=== PATIENT | female | born 1980 | race American Indian/Alaskan Native ===

== ENCOUNTER 2023-02-27 13:14 | Outpatient (CLI) | payer OTHER, SELFPAY ==
--- NOTE | 2023-02-27 13:28 | MM_ITS ---
WS: [id number] BILATERAL 3D TOMOSYNTHESIS DIGITAL SCREENING MAMMOGRAPHY WITH CAD CLINICAL INFORMATION: SCREENING HISTORY: Screening mammogram. No current complaints. COMPARISON: None. TECHNIQUE: Bilateral CC and MLO views. FINDINGS: Scattered fibroglandular densities bilaterally. Numerous bilateral ovoid nodules most prominent in th e central breasts bilaterally and subareolar regions. Largest nodules measure approximately 10 mm. Th kanwal have not been previously evaluated and recommend further evaluation with bilateral breast ultraso und. IMPRESSION: MM/[place] [id number] BI-RADS: 0-Incomplete: Need additional imaging evaluation FOLLOW UP: Need Additional Imaging Recommend bilateral breast ultrasound in further evaluation.
== END 2023-02-27 13:15 | disposition home or self-care (01) ==
PROVIDERS: PCP Nurse Practitioner; Visit Provider Family Medicine
DX: Z12.31 Encounter for screening mammogram for malignant neoplasm of breast (principal); N63.25 Unspecified lump in the left breast, overlapping quadrants; N63.15 Unspecified lump in the right breast, overlapping quadrants
CPT/HCPCS: 77063; 77067

== ENCOUNTER 2023-05-16 09:41 | Outpatient (CLI) | payer OTHER, SELFPAY ==
--- NOTE | 2023-05-16 09:51 | US_ITS ---
WS: [id number] ULTRASOUND BREAST BILATERAL TECHNIQUE: Ultrasound bilateral breast focused area of concern. CLINICAL INFORMATION: INCONCLUSIVE MAMMO COMPARISON: Screening mammography February 27, 2023 FINDINGS: RIGHT BREAST: Ultrasound RIGHT breast at the areola and 3-6 o'clock positions. Multiple small ovoid h ypoechoic nodules likely representing fibroadenomas or complex breast cysts. Largest lesion in the RI GHT breast at the 9:00 position measuring 9 x 8 x 4 mm. These are probably benign. LEFT BREAST: Ultrasound LEFT breast at the areola and 9-12:00 positions. Multiple small ovoid hypoech oic nodules likely representing fibroadenomas or complex breast cysts. Largest lesion in the LEFT brooke ast at the 12:00 position measuring 9 x 9 x 5 mm. These are probably benign. US/US breast BI limited* [id number] IMPRESSION: BI-RADS 3 probably benign Recommend 6 month follow-up bilateral diagnostic mammography and ultrasound to confirm stability
== END 2023-05-16 09:42 | disposition home or self-care (01) ==
PROVIDERS: PCP Family Medicine; Visit Provider Family Medicine
DX: R92.2 Inconclusive mammogram (principal)
CPT/HCPCS: 76642

== ENCOUNTER 2024-01-16 09:52 | Outpatient (CLI) | payer OTHER, SELFPAY ==
--- NOTE | 2024-01-16 09:58 | MM_ITS ---
WS: [id number] BILATERAL 3D TOMOSYNTHESIS DIGITAL DIAGNOSTIC MAMMOGRAPHY WITH CAD CLINICAL INFORMATION: INCONCLUSIVE MAMMO HISTORY: 6-month follow-up COMPARISON: 05/16/2023 and 02/27/2023 TECHNIQUE: Bilateral CC, MLO, and ML views. FINDINGS: Scattered fibroglandular densities bilaterally. Again seen are numerous bilateral ovoid nodules most prominent in the central breast bilaterally in t he subareolar regions. Largest nodules again measure approximately 10 mm unchanged compared to previo us. Bilateral breast ultrasound is pending. No new or progressing nodules. A few incidental calcifica tions. ULTRASOUND BREAST BILATERAL TECHNIQUE: Ultrasound bilateral breast focused area of concern. CLINICAL INFORMATION: INCONCLUSIVE MAMMO FINDINGS: Ultrasound bilateral breast in the areas of concern in comparison to previous. Previously described s mall ovoid hypoechoic lesions likely representing fibroadenomas or complex cysts are stable in appear ance. No new or progressive lesions. Stability is reassuring. Recommend additional 6-month follow-up IMPRESSION: MM/[place] [id number] BI-RADS: 3-Probably Benign FOLLOW UP: 6 Month Follow-up Recommend additional 6-month follow-up bilateral diagnostic mammography and ult rasound to document 18 to 24-month stability.
== END 2024-01-16 09:53 | disposition home or self-care (01) ==
LOC: RAD 09:53
PROVIDERS: PCP Family Medicine; Visit Provider Family Medicine
DX: R92.2 Inconclusive mammogram (principal); R92.323 Mammographic fibroglandular density, bilateral breasts
CPT/HCPCS: 76642; 77062; G0279

== ENCOUNTER 2024-03-27 12:43 | Emergency (ER) | payer OTHER, SELFPAY ==
[2024-03-27 12:52] VITALS: BP 140/74; PULSE 80; RESP 16; TEMP 36.7; O2SAT 97; BMI 21.9
[2024-03-27 12:59] VITALS: BP 156/100; BP 157/100; BP 160/95; PULSE 80; PULSE 82; PULSE 86
--- NOTE | 2024-03-27 12:59 | ED_ITS ---
HPI - Female Genitourinary 2 General: Chief complaint: Vaginal Bleeding Stated complaint: vaginal bleeding, blood clots Time Seen by Provider: 03/27/24 12:57 Source: patient Mode of arrival: ambulatory Limitations: no limitations History of Present Illness: Patient is a 43-year-old female presents to the emergency department with complaint of vaginal bleeding. Patient states she still has normal menstrual cycles and started her menstrual cycle on time approximately 16 days ago however has not stopped bleeding. She states that time she is bleeding heavily and will sometimes soak 2 pads an hour. She is intermittently passing large clots-some as big as golf balls. Patient states she believes her mother had to have a hysterectomy for heavy vaginal bleeding in her late 40s. Patient arrives in no acute distress with stable vital signs. She is not on blood thinners. She has not had any racing heart rate or syncopal episodes. MD elicited complaint: vaginal bleeding Onset (ago): week(s) Quality of pain: cramping Vaginal discharge: none Vaginal bleeding: heavy and clots Exacerbating factors: none Relieving factors: none Associated symptoms: Reports vaginal bleeding; Deny abdominal pain, headache(s), nausea, syncope or vaginal discharge Treatment prior to arrival: none Patient : No Date of Last Menstrual Period: 03/27/24 Review of Systems 2 Const: Denies: fever(s), chills, body aches, fatigue or malaise Card: Denies: chest pain, lightheadedness, syncope or pre-syncope Resp: Denies: dyspnea GI: Denies: abdominal pain, nausea, vomiting or diarrhea : Reports: vaginal bleeding and change in menstrual flow; Denies: flank pain, difficulty voiding, dysuria, urinary frequency, urinary urgency, urinary hesitancy, hematuria, vaginal odor, vaginal discharge or pelvic pain Musc: Denies: back pain Skin/Breast: Denies: rash Neuro: Denies: headache(s), numbness in extremities, weakness in extremities, sensory changes or dizziness [facility] ED 2 Female Reproductive History: Date of last menstrual period: 03/27/24 Physical Exam 2 Const: COMMON NORMALS: no acute distress, patient oriented x3, no limitations, alert and well nourished GENERAL APPEARANCE: cooperative and appears older than stated age NUTRITIONAL APPEARANCE: thin ORIENTATION/CONSCIOUSNESS: Y es awake, Yes oriented to person, Yes oriented to place and Yes oriented to time Resp: COMMON NORMALS: normal respiratory effort and clear to auscultation bilaterally AUSCULTATION: clear to auscultation bilaterally Cardio: COMMON NORMALS: regular rate and regular rhythm RATE: regular rate RHYTHM: regular rhythm GI: COMMON NORMALS: Normal to inspection, nondistended, normoactive bowel sounds present, Soft to palpation, non-tender, No hepatosplenomegaly present and no masses PALPATION: Yes Soft to palpation and Yes No hepatosplenomegaly present : COMMON NORMALS: Yes no CVA tenderness BLADDER/KIDNEY EXAM: Yes no CVA tenderness EXTERNAL FEMALE EXAM: Yes normal appearance of the urethra S PECULUM EXAM - VAGINA: No Vaginal cyst present, No laceration, No lesion, Yes vaginal bleeding and Yes other (blood and large clot cleaned from canal; no brisk bleed noted) SPECULUM EXAM - CERVIX: Yes Cervical os closed, No Tissue present in the cervical os, Yes Cervical bleeding, Yes Nabothian cyst present and No Cervical tenderness present BIMANUAL EXAM - VAGINA & UTERUS: No Cervical tenderness present OB/EXTERNAL & SPECULUM: vaginal bleeding Back/Pelvis: COMMON NORMALS: no CVA tenderness Neuro: COMMON NORMALS: patient oriented x3 SENSORIUM/ORIENTATION: Yes alert, Yes oriented to person, Yes oriented to place and Yes oriented to time Course 2 Vital Signs: Vital signs: Vital Signs Temperature 98.0 F 03/27/24 12:52 Pulse Rate 80 03/27/24 12:59 Respiratory Rate 16 03/27/24 12:52 Blood Pressure 160/95 03/27/24 12:59 Pulse Oximetry 97 03/27/24 12:52 MDM - Female Medical Decision Making Patient arrives in no acute distress. Her vital signs are stable. She has no brisk vaginal bleeding noted on pelvic exam. Orthostatics are negative. Her H&H at this time are 13.4/38.8. Ultrasound showing a normal endometrium. She has a small fibroid present. At this time we will have her follow-up with [facility] for further evaluation of her heavy and prolonged menstrual bleeding. Return ED precautions given. Medical Records I reviewed the patient's medical records. Lab Data I reviewed the patient's lab results. 03/27/24 13:22 03/27/24 13:22 Radiology Impressions Transvaginal US 03/27/24 13:00 IMPRESSION: 1. O-RADS 2; almost certainly benign. No additional imaging follow-up necessary. Hemorrhagic LEFT ovarian cyst. 2. Normal endometrium. 3. Small fibroid in the anterior myometrium. Laboratory Results WBC 6.70 10^3/uL (3.29-11.43) 03/27/24 13:22 RBC 3.69 10^6/uL (3.85-5.65) L 03/27/24 13:22 Hgb 13.40 g/dL (11.27-16.99) 03/27/24 13:22 Hct 38.8 % (36-47) 03/27/24 13:22 MCV 105.1 fl (85-98) H 03/27/24 13:22 MCH 36.3 pg (27-33) H 03/27/24 13:22 MCHC 34.5 g/dL (30-55) 03/27/24 13:22 RDW 13.1 % (12.1-15.1) 03/27/24 13:22 Plt Count 261 10^3/cmm (157-399) 03/27/24 13:22 MPV 9.2 fL (7.4-10.4) 03/27/24 13:22 Neut % (Auto) 47.6 % 03/27/24 13:22 Lymph % (Auto) 43.1 % 03/27/24 13:22 [place] % (Auto) 7.5 % 03/27/24 13:22 Eos % (Auto) 1.2 % 03/27/24 13:22 Baso % (Auto) 0.6 % 03/27/24 13:22 Neut # (Auto) 3.19 10^3/uL (1.8-7.7) 03/27/24 13:22 Lymph # (Auto) 2.9 10^3/uL (0.8-4.8) 03/27/24 13:22 [place] # (Auto) 0.5 10^3/uL (0.2-0.9) 03/27/24 13:22 Eos # (Auto) 0.1 10^3/uL (0.0-0.8) 03/27/24 13:22 Baso # (Auto) 0.0 10^3/uL (0.0-0.1) 03/27/24 13:22 Nucleated RBC % (auto) 0 % 03/27/24 13:22 Nucleated RBCs # 0.0 /100WBC 03/27/24 13:22 PT 14.00 SECONDS (12.1-14.9) 03/27/24 13:22 INR 1.05 (0.8-1.2) 03/27/24 13:22 APTT 26.9 SECONDS (23.9-36.7) 03/27/24 13:22 Sodium 138 mmol/L (136-145) 03/27/24 13:22 Potassium 3.9 mmol/L (3.5-5.1) 03/27/24 13:22 Chloride 102 mmol/L (98-107) 03/27/24 13:22 Carbon Dioxide 24 mmol/L (22-29) 03/27/24 13:22 Anion Gap 15.9 (5-19) 03/27/24 13:22 BUN 9 mg/dL (6-20) 03/27/24 13:22 Creatinine 0.4 mg/dL (0.5-0.9) L 03/27/24 13:22 GFR Calculation 174.2 mL/min (90-130) H 03/27/24 13:22 Glucose 90 mg/dL (65-115) 03/27/24 13:22 Calculated Osmolality 284 mOsm/kg (285-295) L 03/27/24 13:22 Calcium 8.8 mg/dL (8.5-10.5) 03/27/24 13:22 Total Bilirubin 0.3 mg/dL (0.15-1.2) 03/27/24 13:22 AST 74 U/L (0-32) H 03/27/24 13:22 ALT 40 U/L (0-33) H 03/27/24 13:22 Alkaline Phosphatase 146 U/L (35-105) H 03/27/24 13:22 Total Protein 7.7 g/dL (6.6-8.7) 03/27/24 13:22 Albumin 4.0 g/dL (3.5-5.2) 03/27/24 13:22 Globulin 3.7 g/dL (1.3-4.6) 03/27/24 13:22 HCG, Qual Negative (Negative) 03/27/24 13:22 All radiology interpretation(s) finalized by discharge Discharge Plan Discharge Patient Disposition: Home Clinical Impression: Episode of heavy vaginal bleeding Condition: Stable Discharge Orders: Discharge ED (Routine); Ordered 03/27/24 Ordered By: Heather Finley Referrals: Benson Jimenez MD [Primary Care Provider] - Patient Instructions: Abnormal (Dysfunctional) Uterine Bleeding (ED) Activity Restrictions/Additional Instructions: As we discussed, case management should contact you next week to help set you up to the follow-up appointment with [facility]. You need to return to the emergency department for worsening vaginal bleeding, lightheadedness, dizziness, passing out episodes, racing heart rate, or any other concerns you may have. Coding Level of Care Code ED Ensemble Member for Naren Crowe
--- NOTE | 2024-03-27 13:00 | US_ITS ---
WS: [id number] US transvaginal [id number] HISTORY: heavy vaginal bleeding with clots COMPARISON: None available. Uterus: 7.7 cm x 5.4 cm x 4.1 cm. Very small hypoechoic area in the anterior myometrium measures 6 x 4 x 5 mm. This is probably a small fibroid. Otherwise the myometrium is heterogeneous. Endometrium: 0.7 cm. Normal. Normal junctional zone. No mass. Small nabothian cysts in the cervix. Right ovary: 2.6 cm x 2.5 cm x 2.0 cm. Normal size and vascularity, no cystic or solid masses. Small follicle measures 1.7 x 1.2 x 1.7 cm. Left ovary: 4.4 cm x 4.2 cm x 3.3 cm. Slightly enlarged ovary. There is a complex cyst with retractin g clot measuring 3.7 x 2.8 x 3.6 cm. Normal ovarian vascularity. No additional mass and no solid mass . No free fluid in the cul-de-sac. US/US transvaginal [id number] IMPRESSION: 1. O-RADS 2; almost certainly benign. No additional imaging follow-up necessar y. Hemorrhagic LEFT ovarian cyst. 2. Normal endometrium. 3. Small fibroid in the anterior myometrium.
[2024-03-27] MEDS: sodium chloride 0.9% 1,000 ML 999 ML IV (13:28)
[2024-03-27 13:35] LABS: Basophils % 0.6 %; Eosinophils # 0.1 10^3/uL (0.0-0.8); Eosinophils % 1.2 %; Hematocrit 38.8 % (36-47); Lymphocytes # 2.9 10^3/uL (0.8-4.8); Lymphocytes % 43.1 %; Mean Corpuscular HGB Conc 34.5 g/dL (30-55); Mean Corpuscular Hemoglobin 36.3 pg (27-33); Mean Corpuscular Volume 105.1 fl (85-98); Mean Platelet Volume 9.2 fL (7.4-10.4); Monocytes # 0.5 10^3/uL (0.2-0.9); Monocytes % 7.5 %; Neutrophils # 3.19 10^3/uL (1.8-7.7); Neutrophils % 47.6 %; Nucleated Red Blood Cells % 0 %; Platelet Count 261 10^3/cmm (157-399); Red Blood Count 3.69 10^6/uL (3.85-5.65); Red Cell Distribution Width 13.1 % (12.1-15.1)
[2024-03-27 13:57] LABS: Alanine Aminotransferase 40 U/L (0-33); Alkaline Phosphatase 146 U/L (35-105); Anion Gap 15.9 (5-19); Aspartate Amino Transferase 74 U/L (0-32); Blood Urea Nitrogen 9 mg/dL (6-20); Calcium 8.8 mg/dL (8.5-10.5); Carbon Dioxide 24 mmol/L (22-29); Chloride 102 mmol/L (98-107); Creatinine Clr Calc Pharmacy 154.4163; Globulin 3.7 g/dL (1.3-4.6); Glomerular Filtration Rate 174.2 mL/min (90-130); Glucose 90 mg/dL (65-115); Osmolality Calculated 284 mOsm/kg (285-295); Potassium 3.9 mmol/L (3.5-5.1); Sodium 138 mmol/L (136-145); Total Bilirubin 0.3 mg/dL (0.15-1.2); Total Protein 7.7 g/dL (6.6-8.7)
[2024-03-27 13:58] LABS: HCG, Serum Qual Negative (Negative)
--- NOTE | 2024-03-27 13:58 | DCPLANNER ---
message sent to [facility] for er f/u
[2024-03-27 14:26] LABS: INR 1.05 (0.8-1.2); Partial Thromboplastin Time 26.9 SECONDS (23.9-36.7)
[2024-03-27 15:04] VITALS: BP 151/98; PULSE 79; RESP 16; TEMP 36.7; O2SAT 98
== END 2024-03-27 15:05 | disposition home or self-care (01) ==
PROVIDERS: Emergency Provider Physician Assistant; PCP Family Medicine
DX: N93.9 Abnormal uterine and vaginal bleeding, unspecified (principal)
CPT/HCPCS: 76830; 80053; 84703; 85025; 85610; 85730; 96360; 99284; J7030

== ENCOUNTER 2024-06-11 06:34 | Day surgery (SDC) | payer OTHER, SELFPAY ==
[2024-06-11] VITALS (9 sets, daily range): BP systolic 124–173; BP diastolic 73–91; PULSE 67–88; RESP 16–18; TEMP 36.1–36.4; O2SAT 91–97; BMI 21.9
--- NOTE | 2024-06-11 01:37 | W.PM.OPSFHP ---
Same Day Surgery H&P Indication for Procedure/HPI DATE OF PROCEDURE: June 11, 2024 CHIEF COMPLAINT/INDICATIONFOR SURGICAL PROCEDURE: menorrhagia PREOP DIAGNOSIS: abnormal uterine bleeding PLANNED PROCEDURE: Operation Date: 06/11/24 08:20 Proposed Procedures p Hysteroscopy Hysteroscopy w/ Endometrial Sampling 61868, 24050, N94.6(Not Applicable) - Artur Mahraaj MD s possible endometrial Poylpectomy(Not Applicable) - Artur Maharaj MD s Placement of Intrauterine Device(Not Applicable) - Artur Maharaj MD 43 y.o. h/o BTL in 2002 periods occasionally extremely heavy and prolonged was seen in ER March 27, 2024 for very heavy vaginal bleeding had been bleeding for more than 2 weeks was soaking 2 pads per hour Medications/Allergies* Home Medications Medication Instructions Recorded Confirmed Type No Known Home Medications 05/05/24 05/20/24 History Allergies/Adverse Reactions Allergy/AdvReac Type Severity Reaction Status Date / Time azithromycin Allergy ADR-Diarrhe Verified 05/20/24 10:06 a Pertinent History/Comorbid Conditions* Social History Smoking and tobacco/nicotine status: current every day tobacco/nicotine user Pertinent Exam Findings alert, oriented x 3, clear to auscultation bilaterally and regular rate & rhythm Pertinent Data Pelvic sono 03-27-24 uterus 7.7 x 5.4 x 4.1 cm Endometrium 7 mm Normal ovaries Recommendations Surgery/Procedure today Coding Level of Care Code Acute Code for Chg Fwd Time Spent (min) 20
[2024-06-11] MEDS: sodium chloride 0.9% 1,000 ML 30 ML IV (07:23)
--- NOTE | 2024-06-11 07:53 | ANES.PREANE2 ---
Pre-Anesthetic Assessment Height/Weight: Height 5 ft 3 in Weight 124 lb Temp Pulse Resp BP Pulse Ox O2 Del Method 97.5 F L 88 17 150/79 97 Room Air 06/11/24 07:03 06/11/24 07:03 06/11/24 07:03 06/11/24 07:03 06/11/24 07:03 06/11/24 07:06 Preop Diagnosis: abnormal uterine bleeding Operation Date: 06/11/24 08:20 Proposed Procedures p Hysteroscopy Hysteroscopy w/ Endometrial Sampling 38537, 12923, N94.6(Not Applicable) - Artur Maharaj MD s possible endometrial Poylpectomy(Not Applicable) - Artur Maharaj MD s Placement of Intrauterine Device(Not Applicable) - Artur Maharaj MD Last intake: Intake Last Liquid Date 06/10/24 Last Liquid Time 23:00 Last Solid Date 06/10/24 Last Solid Time 20:00 Social Alcohol and Tobacco Airway Submandibular: within normal limits Cervical ROM: within normal limits Mallampati: Class III Comments: Comments: no upper teeth, multiple missing lower teeth, loose back left molar Pulmonary None reported CV/HEM None reported Anesthetic Plan ASA status: 2 Anesthesia: General Other: No prior issues with anesthesia NPO since midnight Patient states that she is very sensitive to narcotics and gets nauseous Scopolamine patch applied, plan for Decadron and Zofran IntraOp METS greater than 4 Current smoker Poor dentition, multiple missing lower teeth with loose back molar Plan for GA Medications/Allergies Home Medications Medication Instructions Recorded Confirmed Last Taken Type No Known Home Medications 05/05/24 05/20/24 Unknown History Allergies Allergy/AdvReac Type Severity Reaction Status Date / Time azithromycin Allergy ADR-Diarrhe Verified 06/11/24 07:02 a Current Medications Generic Name Dose Route Start Last Admin Trade Name Freq PRN Reason Stop Dose Admin Sodium Chloride 1,000 mls @ 30 mls/hr 06/11/24 07:00 06/11/24 07:23 Sodium Chloride 0.9% IV 06/12/24 06:59 30 mls/hr .Q24H ROBERT Administration PFSH Anesthesia Social History Smoking and tobacco/nicotine status: current every day tobacco/nicotine user Data Anesthesia Cardiac Studies: No Data to Display
[2024-06-11] MEDS: scopolamine 1.5 Patch 1 PATCH TRANSDERMA (07:55)
--- NOTE | 2024-06-11 08:30 | W.PM.OPSUD ---
Surgery/Procedure H&P Update DATE OF PROCEDURE: June 11, 2024 DATE H&P PERFORMED: 06/11/24 H&P UPDATE INFORMATION: I have reviewed H&P completed within last 30 days, I have examined patient prior to procedure and No changes to prior documentation PREOP DIAGNOSIS: abnormal uterine bleeding PLANNED PROCEDURE: Operation Date: 06/11/24 08:20 Proposed Procedures p Hysteroscopy Hysteroscopy w/ Endometrial Sampling 14851, 88700, N94.6(Not Applicable) - Artur Maharaj MD s possible endometrial Poylpectomy(Not Applicable) - Artur Maharaj MD s Placement of Intrauterine Device(Not Applicable) - Artur Maharaj MD
[2024-06-11 10:08] LABS: OR HCG Qualitative Urine Negative (Negative)
--- NOTE | 2024-06-11 10:25 | PM.OP ---
Operative Report Date of procedure: June 11, 2024 Pre-op diagnosis: abnormal uterine bleeding Post-op diagnosis: same Post-op findings: normal endometrial cavity No polyps / fibroids minimal endometrial tissue Procedure done: hysteroscopy Curettage of uterus Placement of mirena intrauterine device Implants: intrauterine device Specimens removed/disposition: endometrial curettings Surgeon: Artur Maharaj MD Anesthesia: MAC Estimated blood loss (mL): 5 Complications: none Findings: normal endometrial cavity No polyps / fibroids minimal endometrial tissue Condition: stable Disposition: PACU Brief History: 43 y.o. with history of heavy and prolonged uterine bleeding Procedure: Informed consent signed. Patient was taken to the operating room. Anesthesia was induced. Patient was placed in dorsolithotomy position, prepped and draped for hysteroscopy. A bivalve speculum was placed in the vagina. The anterior lip of the cervix was grasped with a sharp-toothed tenaculum. The cervix was noted to be open and patulous. The uterus was sounded to 9 cm. A hysteroscope was placed into the endometrial cavity. The endometrial cavity was seen to be normal. There were no polyps or fibroids. There was small amount of fluffy appearing endometrial tissue. The hysteroscope was then removed. Endometrial curettage was done with a sharp curette. Endometrial tissue was sent to pathology. The mirena intrauterine device was then prepared, placed into the endometrial cavity and deployed. A 3-4 cm string was left at the cervical os. The sharp-toothed tenaculum was removed. There was no bleeding from the endometrial cavity or cervix. The patient was then placed supine and awakened and taken to the PACU. Postop condition: stable EBL: 5 cc Sponge and instruments counts were normal x 2 Complications: none
--- NOTE | 2024-06-11 10:50 | ANE.PACU2 ---
Inpatient post-anesthesia follow up: Airway intact: Yes Vital signs: Temperature 97.3 F Pulse Rate 78 Respiratory Rate 16 Blood Pressure 135/81 Pulse Oximetry 96 Oxygen Delivery Me thod Room Air Oxygen Flow Rate Fraction of Inspir ed Oxygen Hydration adequate: Yes Nausea and vomiting: Yes Pain level: 1 Mental status: Baseline
--- NOTE | 2024-06-11 14:47 | SUR.OPER ---
MIRENA PLACED IN UTERUS MIRENA EXP 05/15 LOT# [id number]
== END 2024-06-11 10:50 | disposition home or self-care (01) ==
PROVIDERS: Anesthesiology; PCP Family Medicine; Visit Provider Obstetrics & Gynecology
PROC: 0UJD8ZZ Inspection of Uterus and Cervix, Via Natural or Artificial Opening Endoscopic (ICD-10-PCS; CPT 58555; principal; 2024-06-11 08:10)
PROC: (CPT 58300; 2024-06-11 08:10)
PROC: (CPT 58120; 2024-06-11 08:10)
DX: N93.9 Abnormal uterine and vaginal bleeding, unspecified (principal); F17.200 Nicotine dependence, unspecified, uncomplicated; F10.20 Alcohol dependence, uncomplicated
CPT/HCPCS: 58300; 58558; 81025; 88305; J1100; J2371; J2405; J2704; J3010; J7030

== ENCOUNTER 2024-08-13 09:27 | Emergency (ER) | payer OTHER, SELFPAY ==
[2024-08-13 09:46] VITALS: BP 142/92; PULSE 98; RESP 16; TEMP 36.8; O2SAT 98; BMI 23.0
--- NOTE | 2024-08-13 09:49 | W.ED.SKABFB ---
HPI - Skin/Abscess/Foreign Bdy General: Chief complaint: Skin/Abscess/Foreign Body Stated complaint: spider bite, swelling and tender Time Seen by Provider: 08/13/24 09:31 History of Present Illness: Associated symptoms: Deny chills or fever(s) Related Data Home Medications Medication Instructions Recorded Confirmed No Known Home Medications 05/05/24 06/17/24 Allergies Allergy/AdvReac Type Severity Reaction Status Date / Time azithromycin Allergy ADR-Diarrhe Verified 06/17/24 11:32 a Review of Systems Const: Denies: fever(s) or chills Card: Denies: chest pain Resp: Denies: dyspnea GI: Denies: abdominal pain : Denies: dysuria, urinary frequency or urinary urgency Musc: Denies: neck pain or back pain Skin/Breast: Denies: rash PFSH ED PFSH: Medical History (Updated 08/13/24 @ 09:50 by Alok Slade DO) Ovarian cyst Dysmenorrhea Social History Smoking and tobacco/nicotine status: current every day tobacco/nicotine user Physical Exam Const: COMMON NORMALS: no acute distress GENERAL APPEARANCE: cooperative and comfortable ORIENTATION/CONSCIOUSNESS: Yes awake, Yes oriented to person, Yes oriented to place and Yes oriented to time HENMT: COMMON NORMALS: normocephalic, atraumatic and hearing grossly normal bilaterally HEAD & SCALP: normocephalic and atraumatic Resp: COMMON NORMALS: normal respiratory effort, No retractions, No use of accessory muscles and clear to auscultation bilaterally AUSCULTATION: clear to auscultation bilaterally Cardio: COMMON NORMALS: regular rate, regular rhythm and No murmurs present (Cardio) RATE: regular rate RHYTHM: regular rhythm GI: COMMON NORMALS: Soft to palpation and No hepatosplenomegaly present AUSCULTATION: Yes normoactive bowel sounds PALPATION: Yes Soft to palpation, No Tenderness to palpation present (GI), No Guarding due to palpation present (GI) and Yes No hepatosplenomegaly present Extremity: COMMON NORMALS: normal to inspection, capillary refill normal, no clubbing, cyanosis or edema, no calf tenderness and no pedal edema Neuro: SENSORIUM/ORIENTATION: Yes oriented to person, Yes oriented to place and Yes oriented to time Skin: COMMON NORMALS: no rashes or lesions noted GENERAL SKIN EXAM: no rashes or lesions noted Course Vital Signs: Vital signs: Vital Signs Temperature 98.2 F 08/13/24 09:46 Pulse Rate 98 08/13/24 09:46 Respiratory Rate 16 08/13/24 09:46 Blood Pressure 142/92 08/13/24 09:46 Pulse Oximetry 98 08/13/24 09:46 Oxygen Delivery Me thod Room Air 08/13/24 09:46 Discharge Plan Discharge Condition: Stable Prescriptions: No Action No Known Home Medications Referrals: Benson Jimenez MD [Primary Care Provider] - Coding Level of Care Code ED Linux Vmware Administrator for mireille Crowe
--- NOTE | 2024-08-13 10:00 | ED_ITS ---
HPI - Skin/Abscess/Foreign Bdy General: Chief complaint: Skin/Abscess/Foreign Body Stated complaint: spider bite, swelling and tender Time Seen by Provider: 08/13/24 09:31 History of Present Illness: 44-year-old woman who presents with a pa in red and swollen area on her left posterior thigh. This started a couple days ago. She thought might be a spider bite. She has had some drainage from center. No fevers. No nausea or vomiting. No altered mental status. No chest pain. Related Data Previous Rx's Medication Instructions Recorded hydrocodone 5 mg-acetaminophen 325 1 tab PO Q8H PRN pain #14 tabs 08/13/24 mg tablet polyethylene glycol 3350 17 17 g PO DAILY #510 grams 08/13/24 gram/dose oral powder (Miralax) sulfamethoxazole 800 2 tab PO BID 10 days #40 tabs 08/13/24 mg-trimethoprim 160 mg tablet (Bactrim DS) Allergies Allergy/AdvReac Type Severity Reaction Status Date / Time azithromycin Allergy ADR-Diarrhe Verified 06/17/24 11:32 a Review of Systems Narrative: Constitutional symptoms: Negative except as documented in HPI. Skin symptoms: Negative except as documented in HPI. Eye symptoms: Negative except as documented in HPI. ENMT symptoms: Negative except as documented in HPI. Respiratory symptoms: Negative except as documented in HPI. Cardiovascular symptoms: Negative except as documented in HPI. Gastrointestinal symptoms: Negative except as documented in HPI. Genitourinary symptoms: Negative except as documented in HPI. Musculoskeletal symptoms: Negative except as documented in HPI. Neurologic symptoms: Negative except as documented in HPI. Psychiatric symptoms: Negative except as documented in HPI. Endocrine symptoms: Negative except as documented in HPI. PFS ED PFSH: Medical History (Updated 08/13/24 @ 10:01 by Magnolia Schulte MD) Ovarian cyst Dysmenorrhea Social History Smoking and tobacco/nicotine status: current every day tobacco/nicotine user Physical Exam Narrative: EXAM NARRATIVE: General: Alert, no acute distress. Skin: warm and dry. Left posterior mid thigh there is a large area of erythema with central induration and mild fluctuance. There is a central opening. I was able to press some pus from this. There does not appear to be any more abscess at this time. Head: Normocephalic Neck: Trachea midline Eye: Extraocular movements are intact. Ears, nose, mouth and throat: Oral mucosa moist Respiratory: Respirations are non-labored Musculoskeletal: Normal ROM Neurological: Alert and oriented, No focal neurological deficit observed. Psychiatric: Cooperative, appropriate mood & affect. Course Vital Signs: Vital signs: Vital Signs Temperature 98.2 F 08/13/24 09:46 Pulse Rate 98 08/13/24 09:46 Respiratory Rate 16 08/13/24 09:46 Blood Pressure 142/92 08/13/24 09:46 Pulse Oximetry 98 08/13/24 09:46 Oxygen Delivery Me thod Room Air 08/13/24 09:46 MDM - Skin/Abscess/Foreign Bdy Medicial Decision Making Manually some pus from the center of the lesion. There does not appear to be any more pus. I offered to perform an incision and drainage. The patient states she preferred not to right now and if it gets worse she will come back. It seems all the pus is gone for now. Assessment and plan: Abscess ?First dose Bactrim and [place] here In the emergency room - Discharged home - Discussed plan with patient. Answered any questions. - Evaluation and treatment of this problem were appropriate in the emergency setting. No radiology studies performed this visit Discharge Plan Discharge Patient Disposition: Home Clinical Impression: Abscess of skin or subcutaneous tissue Condition: Stable Prescriptions: New hydrocodone-acetaminophen 5-325 mg tablet 1 tab PO Q8H PRN (Reason: pain) Qty: 14 0RF Rx Instructions: Take 1/2 to 1 tab every 8 hours as needed for pain sulfamethoxazole-trimethoprim [Bactrim DS] 800-160 mg tablet 2 tab PO BID 10 Days Qty: 40 0RF polyethylene glycol 3350 [Miralax] 17 gram/dose powder 17 g PO DAILY Qty: 510 0RF Rx Instructions: Take 1 scoop daily while taking pain medications. Discharge Orders: Discharge ED (Routine); Ordered 08/13/24 Ordered By: Magnolia Schulte Referrals: Benson Jimenez MD [Primary Care Provider] - Discharge Diet: Usual diet Discharge Activity: Increase activity as tolerated Patient Instructions: Abscess Follow-up (ED) Activity Restrictions/Additional Instructions: Thank you for choosing [facility] for your healthcare needs today. Please realize this is an emergency room and that we are providing you with a medical screening exam and this may not be complete and all inclusive of all the testing and or work up that you may need to determine your ailment or severity of your illness. You have been screened and evaluated and felt safe for discharge. Health conditions do change or evolve sometimes and as such it is important that you follow up with your Primary Doctor to be re checked, 3-5 days is a general good time frame for follow up. You are always welcome to return to the ED for re assessment if your symptoms are worsening or you have new concerns Coding Level of Care Code ED Agriculture Specialist for Naren Crowe
[2024-08-13 10:20] VITALS: BP 141/89; PULSE 86; O2SAT 99
== END 2024-08-13 10:22 | disposition home or self-care (01) ==
PROVIDERS: Emergency Provider Emergency Medicine; PCP Family Medicine
DX: L02.416 Cutaneous abscess of left lower limb (principal)
CPT/HCPCS: 99283

== ENCOUNTER 2024-08-18 07:36 | Emergency (ER) | payer OTHER, SELFPAY ==
[2024-08-18] VITALS (8 sets, daily range): BP systolic 105–125; BP diastolic 65–79; PULSE 96–121; RESP 18; TEMP 38.3; O2SAT 94–96; BMI 23.0
--- NOTE | 2024-08-18 08:25 | XRR_ITS ---
PROCEDURE INFORMATION: Exam: XR Chest Exam date and time: 08/18/2024 8:31 AM Age: 44 years old Clinical indication: Cough, dyspnea and fever TECHNIQUE: Imaging protocol: Radiologic exam of the chest. Views: 1 view. COMPARISON: CR XR chest 1V [id number] 06/04/2018 12:14 PM FINDINGS: Lungs: No pulmonary vascular congestion, pulmonary edema or pneumonia. Pleural spaces: No pleural effusion or pneumothorax. Heart/Mediastinum: The cardiac silhouette is not enlarged. The mediastinal contours are normal. Bones/joints: No acute osseous abnormality. XR/XR chest 1V portable [id number] IMPRESSION: No acute finding.
--- NOTE | 2024-08-18 08:37 | ED_ITS ---
HPI - Fever 2 General: Chief Complaint: Fever Stated Complaint: fever, (spider bit), headache Time Seen by Provider: 08/18/24 08:19 History of Present Illness: 44-year-old female presents to the emerg ency room complaining of fever headache cough generalized myalgias this been going on for several days patient has been febrile as well. Was recently treated with Bactrim for a cellulitis of the posterior left thigh that seems to be improving. And feels much better. She has had some loose stools no vomiting no hematochezia or melena no dysuria urgency or frequency. Associated symptoms: Reports chills; Deny abdominal pain, chest pain or dysuria Related Data Home Medications Medication Instructions Recorded Confirmed acetaminophen 325 mg tablet 650 mg PO QID PRN pain or fever 08/18/24 08/19/24 (Tylenol) ibuprofen 200 mg tablet (Advil) 200 mg PO Q6H PRN Pain 08/18/24 08/19/24 Previous Rx's Medication Instructions Recorded hydrocodone 5 mg-acetaminophen 325 1 tab PO Q8H PRN pain #14 tabs 08/13/24 mg tablet polyethylene glycol 3350 17 17 g PO DAILY #510 grams 08/13/24 gram/dose oral powder (Miralax) sulfamethoxazole 800 2 tab PO BID 10 days #40 tabs 08/13/24 mg-trimethoprim 160 mg tablet (Bactrim DS) albuterol sulfate 90 mcg/actuation 2 inh inhalation Q4H PRN shortness 08/18/24 aerosol inhaler of breath or wheezing #18 grams prednisone 20 mg tablet 20 mg PO TID #15 tabs 08/18/24 Allergies Allergy/AdvReac Type Severity Reaction Status Date / Time azithromycin Allergy ADR-Diarrhe Verified 08/19/24 13:55 a Review of Systems 2 Const: Reports: fever(s), chills and fatigue Card: Denies: chest pain Resp: Denies: dyspnea GI: Denies: abdominal pain : Denies: dysuria, urinary frequency or urinary urgency Musc: Denies: neck pain or back pain Skin/Breast: Reports: rash and erythema (Resolving cellulitis left posterior thigh) PFSH ED 2 PFSH: Medical History Ovarian cyst Dysmenorrhea Social History (Reviewed 08/18/24 @ 08:39 by JIMMY Jones Smoking and tobacco/nicotine status: current every day tobacco/nicotine user Physical Exam 2 Const: COMMON NORMALS: no acute distress GENERAL APPEARANCE: cooperative and comfortable ORIENTATION/CONSCIOUSNESS: Yes awake, Yes oriented to person, Yes oriented to place and Yes oriented to time HENMT: COMMON NORMALS: normocephalic, atraumatic and hearing grossly normal bilaterally HEAD & SCALP: normocephalic and atraumatic Resp: COMMON NORMALS: normal respiratory effort, No retractions, No use of accessory muscles and clear to auscultation bilaterally AUSCULTATION: clear to auscultation bilaterally Cardio: COMMON NORMALS: regular rhythm and No murmurs present (Cardio) R ATE: tachycardic RHYTHM: regular rhythm GI: COMMON NORMALS: Soft to palpation and No hepatosplenomegaly present A USCULTATION: Yes normoactive bowel sounds PALPATION: Yes Soft to palpation, No Tenderness to palpation present (GI), No Guarding due to palpation present (GI) and Yes No hepatosplenomegaly present Extremity: COMMON NORMALS: normal to inspection, capillary refill normal, no clubbing, cyanosis or edema, no calf tenderness and no pedal edema Neuro: SENSORIUM/ORIENTATION: Yes oriented to person, Yes oriented to place and Yes oriented to time Skin: OTHER: Left posterior thigh redness with a small superficial eschar. No induration no palpable fluctuant areas. No other rash noted Course 2 Vital Signs: Vital signs: Vital Signs Temperature 100.9 F H 08/18/24 07:48 Pulse Rate 96 08/18/24 12:08 Respiratory Rate 18 08/18/24 07:48 Blood Pressure 114/65 08/18/24 12:08 Pulse Oximetry 95 08/18/24 12:08 Oxygen Delivery Me thod Room Air 08/18/24 11:30 MDM - Fever Medical Decision Making Wound of the left posterior thigh appears to actually be improving. There is no acute infection at this time is not indurated there is no drainage. She is improved with breathing treatments. Will discharge home I think a lot of her symptoms are COPD exacerbation started on prednisone taper albuterol which she has not been using. She is not having productive cough at this point her chest x-ray is normal we will hold off on any antibiotics follow-up with primary care in the next 2 to 3 days. Lab Data 08/18/24 09:15 08/18/24 09:15 Radiology Impressions Chest X-Ray 08/18/24 08:25 IMPRESSION: No acute finding. Laboratory Results WBC 2.31 10^3/uL (3.29-11.43) L 08/18/24 09:15 RBC 4.01 10^6/uL (3.85-5.65) 08/18/24 09:15 Hgb 14.30 g/dL (11.27-16.99) 08/18/24 09:15 Hct 41.8 % (36-47) 08/18/24 09:15 MCV 104.2 fl (85-98) H 08/18/24 09:15 MCH 35.7 pg (27-33) H 08/18/24 09:15 MCHC 34.2 g/dL (30-55) 08/18/24 09:15 RDW 13.6 % (12.1-15.1) 08/18/24 09:15 Plt Count 143 10^3/cmm (157-399) L 08/18/24 09:15 MPV 9.7 fL (7.4-10.4) 08/18/24 09:15 Neut % (Auto) 61.4 % 08/18/24 09:15 Lymph % (Auto) 16.0 % 08/18/24 09:15 [place] % (Auto) 10.0 % 08/18/24 09:15 Eos % (Auto) 10.4 % 08/18/24 09:15 Baso % (Auto) 0.0 % 08/18/24 09:15 Neut # (Auto) 1.42 10^3/uL (1.8-7.7) L 08/18/24 09:15 Lymph # (Auto) 0.4 10^3/uL (0.8-4.8) L 08/18/24 09:15 [place] # (Auto) 0.2 10^3/uL (0.2-0.9) 08/18/24 09:15 Eos # (Auto) 0.2 10^3/uL (0.0-0.8) 08/18/24 09:15 Baso # (Auto) 0.0 10^3/uL (0.0-0.1) 08/18/24 09:15 Nucleated RBC % (auto) 0 % 08/18/24 09:15 Nucleated RBCs # 0.0 /100WBC 08/18/24 09:15 Sodium 130 mmol/L (136-145) L 08/18/24 09:15 Potassium 3.4 mmol/L (3.5-5.1) L 08/18/24 09:15 Chloride 96 mmol/L (98-107) L 08/18/24 09:15 Carbon Dioxide 19 mmol/L (22-29) L 08/18/24 09:15 Anion Gap 18.4 (5-19) 08/18/24 09:15 BUN 4 mg/dL (6-20) L 08/18/24 09:15 Creatinine 0.5 mg/dL (0.5-0.9) 08/18/24 09:15 GFR Calculation 134.0 mL/min (90-130) H 08/18/24 09:15 Glucose 94 mg/dL (65-115) 08/18/24 09:15 Calculated Osmolality 267 mOsm/kg (285-295) L 08/18/24 09:15 Lactic Acid 0.7 mmol/L (0.5-2.2) 08/18/24 09:15 Calcium 8.7 mg/dL (8.5-10.5) 08/18/24 09:15 Total Bilirubin 0.3 mg/dL (0.15-1.2) 08/18/24 09:15 AST 74 U/L (0-32) H 08/18/24 09:15 ALT 32 U/L (0-33) 08/18/24 09:15 Alkaline Phosphatase 228 U/L (35-105) H 08/18/24 09:15 Total Protein 7.8 g/dL (6.6-8.7) 08/18/24 09:15 Albumin 4.1 g/dL (3.5-5.2) 08/18/24 09:15 Globulin 3.7 g/dL (1.3-4.6) 08/18/24 09:15 Urine Color Yellow (Yellow) 08/18/24 09:08 Urine Appearance Clear (CLEAR) 08/18/24 09:08 Urine pH 6.0 (5-7) 08/18/24 09:08 Ur Specific [place] 1.023 (1.005-1.030) 08/18/24 09:08 Urine Protein Trace (Negative) A 08/18/24 09:08 Urine Glucose (UA) Negative (Normal) 08/18/24 09:08 Urine Ketones 2+ (Negative) H 08/18/24 09:08 Urine Blood Negative (Negative) 08/18/24 09:08 Urine Nitrate Negative (Negative) 08/18/24 09:08 Urine Bilirubin Negative (Negative) 08/18/24 09:08 Urine Urobilinogen 1.0 mg/dL (Negative) 08/18/24 09:08 Ur Leukocyte Esterase Negative (Negative) 08/18/24 09:08 Amorphous Sediment Not Reportable 08/18/24 09:08 Coronavirus (PCR) Negative (Negative) 08/18/24 08:52 Influenza A (PCR) Negative (Negative) 08/18/24 08:52 Influenza Type B (PCR) Negative (Negative) 08/18/24 08:52 RSV (PCR) Negative (Negative) 08/18/24 08:52 All radiology interpretation(s) finalized by discharge Discharge Plan Discharge Patient Disposition: Home Clinical Impression: COPD with acute exacerbation, Viral respiratory infection Condition: Stable Prescriptions: New prednisone 20 mg tablet 20 mg PO TID Qty: 15 0RF Rx Instructions: 1 p.o. 3 times daily x3 days, 1 p.o. twice daily x2 days, 1 p.o. daily x2 days albuterol sulfate 90 mcg/actuation HFA aerosol inhaler 2 inh INHALATION Q4H PRN (Reason: shortness of breath or wheezing) Qty: 18 0RF No Action hydrocodone-acetaminophen 5-325 mg tablet 1 tab PO Q8H PRN (Reason: pain) Qty: 14 0RF Rx Instructions: Take 1/2 to 1 tab every 8 hours as needed for pain sulfamethoxazole-trimethoprim [Bactrim DS] 800-160 mg tablet 2 tab PO BID 10 Days Qty: 40 0RF polyethylene glycol 3350 [Miralax] 17 gram/dose powder 17 g PO DAILY Qty: 510 0RF Rx Instructions: Take 1 scoop daily while taking pain medications. acetaminophen [Tylenol] 325 mg Tablet 650 mg PO QID PRN (Reason: pain or fever ) ibuprofen [Advil] 200 mg Tablet 200 mg PO Q6H PRN (Reason: Pain) Discharge Orders: Discharge ED (Routine); Ordered 08/18/24 Ordered By: Alok Slade Referrals: Benson Jimenez MD [Primary Care Provider] - Discharge Diet: Usual diet Discharge Activity: Increase activity as tolerated Patient Instructions: Opioid Safety, Pain Management Activity Restrictions/Additional Instructions: Thank you for choosing [facility] for your healthcare needs today. It is very important that you follow up as instructed or that you return to the Emergency Department should you have concerns or if your condition changes or worsens in any way. You are seen today with complaints of fever cough cold symptoms. She did have a fever while you are in the emergency room. Your white count was not significantly elevated. Flu COVID and RSV swabs were negative chest x-ray was normal. Recommend a steroid taper and regular use of albuterol. Stand Alone Forms: Work/School Release Coding Level of Care Code ED Neonatologist for Naren Crowe
[2024-08-18 09:31] LABS: Add Urine Microscopic? NO
[2024-08-18 09:34] LABS: Bilirubin Urine Negative (Negative); Blood Urine Negative (Negative); Glucose Urine UA Negative (Normal); Ketones Urine 2+ (Negative); Leukocyte Esterase Urine Negative (Negative); Nitrate Urine Negative (Negative); Protein Urine Trace (Negative); Specific Gravity, Urine 1.023 (1.005-1.030); Urine Appearance Clear (CLEAR); Urine Color Yellow (Yellow)
[2024-08-18 09:36] LABS: Add Urine Culture? No
[2024-08-18 09:37] LABS: Charge for UA Resulting for Rev
[2024-08-18 09:50] LABS: Eosinophils # 0.2 10^3/uL (0.0-0.8); Eosinophils % 10.4 %; Hematocrit 41.8 % (36-47); Lymphocytes # 0.4 10^3/uL (0.8-4.8); Mean Corpuscular HGB Conc 34.2 g/dL (30-55); Mean Corpuscular Hemoglobin 35.7 pg (27-33); Mean Corpuscular Volume 104.2 fl (85-98); Mean Platelet Volume 9.7 fL (7.4-10.4); Monocytes # 0.2 10^3/uL (0.2-0.9); Neutrophils # 1.42 10^3/uL (1.8-7.7); Neutrophils % 61.4 %; Nucleated Red Blood Cells % 0 %; Platelet Count 143 10^3/cmm (157-399); Red Blood Count 4.01 10^6/uL (3.85-5.65); Red Cell Distribution Width 13.6 % (12.1-15.1); White Blood Count 2.31 10^3/uL (3.29-11.43)
[2024-08-18 10:00] LABS: Covid PCR NEGATIVE (Negative); Influenza A NEGATIVE (Negative); Influenza B NEGATIVE (Negative); Respiratory Syncytial Virus Ce NEGATIVE (Negative)
[2024-08-18 10:04] LABS: Chloride 96 mmol/L (98-107); Potassium 3.4 mmol/L (3.5-5.1); Sodium 130 mmol/L (136-145)
[2024-08-18 10:09] LABS: Lactic Sepsis W/Reflex 0.7 mmol/L (0.5-2.2)
[2024-08-18] MEDS: ondansetron 2 mg/ML SDV 2 mL 4 MG IVP (10:24)
[2024-08-18 10:41] LABS: Alanine Aminotransferase 32 U/L (0-33); Alkaline Phosphatase 228 U/L (35-105); Anion Gap 18.4 (5-19); Aspartate Amino Transferase 74 U/L (0-32); Blood Urea Nitrogen 4 mg/dL (6-20); Calcium 8.7 mg/dL (8.5-10.5); Carbon Dioxide 19 mmol/L (22-29); Creatinine Clr Calc Pharmacy 124.7274; Glucose 94 mg/dL (65-115); Osmolality Calculated 267 mOsm/kg (285-295); Total Bilirubin 0.3 mg/dL (0.15-1.2); Total Protein 7.8 g/dL (6.6-8.7)
[2024-08-18 11:05] LABS: Albumin Level 4.1 g/dL (3.5-5.2); Globulin 3.7 g/dL (1.3-4.6)
[2024-08-18] MEDS: ketorolac 30 mg/mL INJ IVP (11:49)
== END 2024-08-18 12:08 | disposition home or self-care (01) ==
PROVIDERS: Emergency Provider Family Medicine; PCP Family Medicine
DX: J44.1 Chronic obstructive pulmonary disease with (acute) exacerbation (principal); J06.9 Acute upper respiratory infection, unspecified; Z11.52 Encounter for screening for COVID-19; Z72.0 Tobacco use
CPT/HCPCS: 0241U; 36415; 71045; 80053; 81003; 83605; 85025; 87040; 96374; 96375; 99284; J1885; J2405